=== PATIENT | female | born 1990 | race Caucasian/White ===

== ENCOUNTER 2017-04-24 22:30 | Emergency (ER) | payer OTHER ==
[~2017-04-24] VITALS: Ht 167.6 cm; Wt 104.3 kg
[2017-04-24 23:22] LABS: BILIRUBIN,URINE NEGATIVE (NEG); GLUCOSE,URINE NEGATIVE (NEG); NITRITE,URINE NEGATIVE (NEG); PROTEIN,URINE NEGATIVE (NEG-TRACE)
[2017-04-24 23:23] LABS: BASO # 0.1 x10^3/uL (0.0-0.2); BASO % 0 % (0-3); EOS % 1 % (0-3); LYMPH % 34 % (24-48); MEAN CORPUSCULAR HEMOGLOBIN 28 pg (25-35); MEAN CORPUSCULAR HGB CONC 33 g/dL (31-37); MEAN CORPUSCULAR VOLUME 85 fL (79-100); MONO % 6 % (0-9); NEUT % 58 % (31-73); PLATELET COUNT 246 x10^3/uL (140-400); RED BLOOD COUNT 4.37 x10^6/uL (3.50-5.40); RED CELL DISTRIBUTION WIDTH 13.9 % (11.5-14.5); WHITE BLOOD COUNT 11.6 x10^3/uL (4.0-11.0)
[2017-04-24 23:28] LABS: BACTERIA,URINE FEW /HPF (0-FEW); RBC,URINE 0 /HPF (0-2); SQUAMOUS EPITHELIAL CELL,UR MOD /LPF
[2017-04-24] MEDS ORDERED: IV RINGERS,LACTATED 1000ML 1,000 ML IV SCH (23:30)
[2017-04-24] MEDS ORDERED: IOHEXOL 300 MG/ML 75 ML VIAL IV ONE (23:30)
[2017-04-24] MEDS ORDERED: CONTRAST GIVEN MC PRN (23:30)
[2017-04-24 23:35] LABS: CREATININE 0.8 mg/dL (0.6-1.0); POTASSIUM 3.4 mmol/L (3.5-5.1)
[2017-04-24 23:41] LABS: ALBUMIN 3.4 g/dL (3.4-5.0); ALBUMIN/GLOBULIN RATIO 0.8 (1.0-1.7); TOTAL BILIRUBIN 0.3 mg/dL (0.2-1.0); TOTAL PROTEIN 7.5 g/dL (6.4-8.2)
[2017-04-24 23:53] LABS: NEG OBC SER NEG; POS OBC SER POS
--- NOTE | 2017-04-25 00:05 | RAD ---
CT Abdomen and Pelvis With Intravenous Contrast: History: Severe low abdominal pain for 2 days. Comparison: None. Technique: After administration of intravenous contrast administration, 75 mL Omnipaque-300, CT of the abdomen and pelvis was performed. Exposure: One or more of the following individualized dose reduction techniques were utilized for this examination: 1. Automated exposure control 2. Adjustment of the mA and/or kV according to patient size 3. Use of iterative reconstruction technique Findings: Evaluation of enteric structures may be limited by lack of oral contrast. Liver, spleen, pancreas, and bilateral adrenal glands unremarkable. Gallbladder is absent. Bilateral kidneys enhance symmetrically. No bowel obstruction or inflammation is seen. Appendix is without evidence of inflammation. Urinary bladder is unremarkable. Uterus and adnexa have unremarkable CT appearance. There is a small fat-containing hernia in the ventral abdominal wall just superior to the umbilicus. Impression: 1. No acute abnormality identified in the abdomen or pelvis. 2. Small fat-containing ventral hernia. Electronically signed by: Israel Chaudhari MD (04/25/2017 12:02 AM)
--- NOTE | 2017-04-25 00:19 | PHYS DOC ---
Past Medical History Past Medical History: Anemia, Diabetes-Type II Additional Past Medical Histor: ABNORMAL PAP Past Surgical History: Cholecystectomy, , Other Additional Past Surgical Histo: right hip surgery Alcohol Use: None Drug Use: None Adult General Chief Complaint Chief Complaint: ABDOMINAL PAIN HPI HPI 26-year-old female with no prior abdominal history now presents emergency department complaining of mid lower abdominal pain. Patient denies being aware that she is . She has no vaginal discharge or bleeding. Denies right lower quadrant pain. Normal bowel bladder habits. She has no history of chronic abdominal problems. Denies vomiting or diarrhea. Pain is not worse with movement Review of Systems Review of Systems Constitutional: Denies fever or chills [] Eyes: Denies change in visual acuity, redness, or eye pain [] HENT: Denies nasal congestion or sore throat [] Respiratory: Denies cough or shortness of breath [] Cardiovascular: No additional information not addressed in HPI [] GI: Denies abdominal pain, nausea, vomiting, bloody stools or diarrhea [] : Denies dysuria or hematuria [] Musculoskeletal: Denies back pain or joint pain [] Integument: Denies rash or skin lesions [] Neurologic: Denies headache, focal weakness or sensory changes [] Endocrine: Denies polyuria or polydipsia [] Current Medications Current Medications Current Medications Medications (Trade) Dose Ordered Sig/Donnie Start Time Stop Time Status Last Admin Dose Admin Info (Do NOT chart on this entry -- for MONITORING) 1 each PRN DAILY PRN 04/24/17 23:30 04/26/17 23:29 Iohexol (Omnipaque 300 Mg/ml) 75 ml 1X ONCE 04/24/17 23:30 04/24/17 23:31 DC 04/24/17 23:30 75 ML Ringer's Solution 1,000 ml @ 1,000 mls/hr Q1H 04/24/17 23:30 04/25/17 00:29 04/24/17 23:59 1,000 MLS/HR Allergies Allergies Allergies Coded Allergies Type Severity Reaction Last Updated Verified Penicillins Allergy Intermediate 09/30/16 Yes Physical Exam Physical Exam Well-appearing patient noted to stress mild mid abdominal tenderness no guarding or rebound, bowel sounds and no mass or megaly appreciated. No skin changes Constitutional: Well developed, well nourished, no acute distress, non-toxic appearance. [] HENT: Normocephalic, atraumatic, bilateral external ears normal, oropharynx moist, no oral exudates, nose normal. [] Eyes: PERRLA, EOMI, conjunctiva normal, no discharge. [] Neck: Normal range of motion, no tenderness, supple, no stridor. [] Cardiovascular:Heart rate regular rhythm, no murmur [] Lungs & Thorax: Bilateral breath sounds clear to auscultation [] Abdomen: Bowel sounds normal, soft, no tenderness, no masses, no pulsatile masses. [] Skin: Warm, dry, no erythema, no rash. [] Back: No tenderness, no CVA tenderness. [] Extremities: No tenderness, no cyanosis, no clubbing, ROM intact, no edema. [] Neurologic: Alert and oriented X 3, normal motor function, normal sensory function, no focal deficits noted. [] Psychologic: Affect normal, judgement normal, mood normal. [] Current Patient Data Vital Signs Vital Signs Date Time Temp Pulse Resp B/P (MAP) Pulse Ox O2 Delivery O2 Flow Rate FiO2 04/24/17 22:39 98.4 107 20 143/69 (93) 99 Room Air 98.4 Lab Values Laboratory Tests Test 04/24/17 21:52 04/24/17 22:46 04/24/17 22:47 POC Urine HCG, Qualitative Hcg negative (Negative) White Blood Count 11.6 x10^3/uL (4.0-11.0) H Red Blood Count 4.37 x10^6/uL (3.50-5.40) Hemoglobin 12.0 g/dL (12.0-15.5) Hematocrit 37.0 % (36.0-47.0) Mean Corpuscular Volume 85 fL (79-100) Mean Corpuscular Hemoglobin 28 pg (25-35) Mean Corpuscular Hemoglobin Concent 33 g/dL (31-37) Red Cell Distribution Width 13.9 % (11.5-14.5) Platelet Count 246 x10^3/uL (140-400) Neutrophils (%) (Auto) 58 % (31-73) Lymphocytes (%) (Auto) 34 % (24-48) Monocytes (%) (Auto) 6 % (0-9) Eosinophils (%) (Auto) 1 % (0-3) Basophils (%) (Auto) 0 % (0-3) Neutrophils # (Auto) 6.8 x10^3uL (1.8-7.7) Lymphocytes # (Auto) 4.0 x10^3/uL (1.0-4.8) Monocytes # (Auto) 0.7 x10^3/uL (0.0-1.1) Eosinophils # (Auto) 0.1 x10^3/uL (0.0-0.7) Basophils # (Auto) 0.1 x10^3/uL (0.0-0.2) Sodium Level 142 mmol/L (136-145) Potassium Level 3.4 mmol/L (3.5-5.1) L Chloride Level 105 mmol/L (98-107) Carbon Dioxide Level 29 mmol/L (21-32) Anion Gap 8 (6-14) Blood Urea Nitrogen 8 mg/dL (7-20) Creatinine 0.8 mg/dL (0.6-1.0) Estimated GFR (Cockcroft-Gault) 86.0 BUN/Creatinine Ratio 10 (6-20) Glucose Level 99 mg/dL (70-99) Calcium Level 9.0 mg/dL (8.5-10.1) Total Bilirubin 0.3 mg/dL (0.2-1.0) Aspartate Amino Transferase (AST) 20 U/L (15-37) Alanine Aminotransferase (ALT) 29 U/L (14-59) Alkaline Phosphatase 116 U/L (46-116) Total Protein 7.5 g/dL (6.4-8.2) Albumin 3.4 g/dL (3.4-5.0) Albumin/Globulin Ratio 0.8 (1.0-1.7) L Lipase 134 U/L (73-393) Serum Test, Qualitative Negative (NEG) Urine Collection Type Unknown Urine Color Yellow Urine Clarity Clear Urine pH 6.0 Urine Specific [place]offeen 1.020 Urine Protein Negative mg/dL (NEG-TRACE) Urine Glucose (UA) Negative mg/dL (NEG) Urine Ketones (Stick) Negative mg/dL (NEG) Urine Blood Negative (NEG) Urine Nitrite Negative (NEG) Urine Bilirubin Negative (NEG) Urine Urobilinogen Dipstick 1.0 mg/dL (0.2 mg/dL) Urine Leukocyte Esterase Moderate (NEG) Urine RBC 0 /HPF (0-2) Urine WBC 1-4 /HPF (0-4) Urine Squamous Epithelial Cells Mod /LPF Urine Bacteria Few /HPF (0-FEW) Urine Mucus Mod /LPF Laboratory Tests 04/24/17 22:46 Laboratory Tests 04/24/17 22:46 EKG EKG [] Radiology/Procedures Radiology/Procedures [] Course & Med Decision Making Course & Med Decision Making Pertinent Labs and Imaging studies reviewed. (See chart for details) Well-appearing patient unremarkable vital signs afebrile. Minimal mid abdominal tenderness no guarding or rebound. Labs unremarkable. Patient non. CT with small fat-containing hernia and abdominal midline otherwise unremarkable including no evidence of appendicitis. No further workup or treatment indicated. Patient agrees with outpatient follow-up with PCP. Strict return precautions given. [] Dragon Disclaimer Dragon Disclaimer This electronic medical record was generated, in whole or in part, using a voice recognition dictation system. Departure Departure Disposition: HOME, SELF-CARE Condition: STABLE Referrals: NO PCP (PCP) Patient Instructions: Abdominal Pain Additional Instructions: We have done a full workup of your abdominal pain today. Her labs are unremarkable. Urine shows no signs of infection. You are not . Your CAT scan shows that you have a small hernia in the midline of your abdomen where a small amount of fat is poking through some your connective tissues. This is typically a painful process however it is not threatening at all. It is likely that this is what causing her abdominal pain today. Follow-up with your doctor for reevaluation and referral to a surgeon to discuss surgical correction if this becomes necessary if her pain persists or worsens. Take 800 mg of ibuprofen every 6 hours and take Tylenol as needed for pain as well. Return immediately for any severe or worsening symptoms LUTHER LUNA MD Apr 25, 2017 00:19
[2017-04-25 00:24] VITALS: BP 115/68
== END 2017-04-25 00:45 | disposition home or self-care (01) ==
LOC: ER 22:30
DX: R10.30 Lower abdominal pain, unspecified (principal); E11.9 Type 2 diabetes mellitus without complications; Z88.0 Allergy status to penicillin; Z90.49 Acquired absence of other specified parts of digestive tract
CPT/HCPCS: 36415; 74177; 80053; 81001; 81025; 83690; 84703; 85027; 96360; 99285; Q9967; J7120

== ENCOUNTER 2019-06-15 16:12 | Emergency (ER) | payer MEDICAID, OTHER ==
[~2019-06-15] VITALS: Ht 170.2 cm; Wt 104.3 kg
[2019-06-15 16:17] VITALS: BP 134/68
[2019-06-15] MEDS ORDERED: CEPH-264 PO (16:34)
[2019-06-15] MEDS ORDERED: SULF1TAB24 PO (16:34)
--- NOTE | 2019-06-15 16:35 | PHYS DOC ---
Past Medical History Past Medical History: Anemia, Diabetes-Type II Additional Past Medical Histor: ABNORMAL PAP Past Surgical History: Cholecystectomy, , Other Additional Past Surgical Histo: right hip surgery Alcohol Use: None Drug Use: None Adult General Chief Complaint Chief Complaint: INSECT BITE [facility] HPI Patient is a 29 year old female presents to the ED complaining of insect bite to right abdomen times one day ago. States she was at the [employer] and woke up with what she thinks was a spider bite. States she did not feel it but states that she woke up with pain. Describes the pain as sharp. Rates the pain as 5/10. Denies fever, weakness, nausea/vomiting, headache, dizziness, chills or abscess. Review of Systems Review of Systems Constitutional: Denies fever or chills [] Eyes: Denies change in visual acuity, redness, or eye pain [] HENT: Denies nasal congestion or sore throat [] Respiratory: Denies cough or shortness of breath [] Cardiovascular: No additional information not addressed in HPI [] GI: Denies abdominal pain, nausea, vomiting, bloody stools or diarrhea [] : Denies dysuria or hematuria [] Musculoskeletal: Denies back pain or joint pain [] Integument: Denies rash or skin lesions [] Neurologic: Denies headache, focal weakness or sensory changes [] All other systems were reviewed and found to be within normal limits, except as documented in this note. Allergies Allergies Allergies Coded Allergies Type Severity Reaction Last Updated Verified Penicillins Allergy Intermediate 09/30/16 Yes Physical Exam Physical Exam Constitutional: Well developed, well nourished, no acute distress, non-toxic appearance. [] HENT: Normocephalic, atraumatic Skin: Warm, dry. insect bite like to right side of abdomen with 2 cm surrounding erythema and warmth. No abscess. Back: No tenderness, no CVA tenderness. [] Extremities: No tenderness, no cyanosis, no clubbing, ROM intact, no edema. [] Neurologic: Alert and oriented X 3, normal motor function, normal sensory function, no focal deficits noted. [] Psychologic: Affect normal, judgement normal, mood normal. [] Current Patient Data Vital Signs Vital Signs Date Time Temp Pulse Resp B/P (MAP) Pulse Ox O2 Delivery O2 Flow Rate FiO2 06/15/19 16:17 98.9 98 20 134/68 (90) 99 Room Air 98.9 EKG EKG [] Radiology/Procedures Radiology/Procedures [] Course & Med Decision Making Course & Med Decision Making Pertinent Labs and Imaging studies reviewed. (See chart for details) []No abscess or fluctuance on exam. We'll treat with antibiotics outpatient. Discussed symptomatic treatment and [id number] medications. Discussed follow-up for reevaluation in 3 days. Discussed reasons to return to the ED. Patient understands and agrees with plan. Dragon Disclaimer Dragon Disclaimer This electronic medical record was generated, in whole or in part, using a voice recognition dictation system. Departure Departure Impression: Primary Impression: Insect bite Additional Impression: Cellulitis Disposition: HOME, SELF-CARE Condition: IMPROVED Referrals: NO PCP (PCP) LUTHER DONAHUE MD Patient Instructions: Cellulitis, Insect Bite Scripts Doxycycline Hyclate (DOXYCYCLINE HYCLATE) 100 Mg Tablet 1 TAB PO BID for 10 Days, #20 TAB Prov: JULIANNA DELEON 06/15/19 Cephalexin (KEFLEX) 500 Mg Capsule 1 CAP PO TID for 10 Days, #30 CAP Prov: JULIANNA DELEON 06/15/19 Sulfamethoxazole/Trimethoprim (BACTRIM DS TABLET) 1 Each Tablet 1 TAB PO BID for 10 Days, #20 TAB Prov: JULIANNA DELEON 06/15/19 Problem Qualifiers JULIANNA DELEON Jun 15, 2019 16:35
[2019-06-15] MEDS ORDERED: DOXY100T PO (16:44)
== END 2019-06-15 16:48 | disposition home or self-care (01) ==
LOC: ER 16:12
DX: S30.861A Insect bite (nonvenomous) of abdominal wall, initial encounter (principal); L03.311 Cellulitis of abdominal wall; E11.9 Type 2 diabetes mellitus without complications; Z90.49 Acquired absence of other specified parts of digestive tract; Z98.890 Other specified postprocedural states; Z88.0 Allergy status to penicillin; W57.XXXA Bitten or stung by nonvenomous insect and other nonvenomous arthropods, initial encounter; Y93.89 Activity, other specified; Y92.89 Other specified places as the place of occurrence of the external cause; Y99.8 Other external cause status
CPT/HCPCS: 99283

== ENCOUNTER 2020-11-30 15:02 | Emergency (ER) | payer MEDICAID ==
[~2020-11-30] VITALS: Ht 170.2 cm; Wt 114.5 kg
[~2020-11-30 15:02] MED LIST: CEPH-264 PO; DOXY100T PO; SULF1TAB24 PO
--- NOTE | 2020-11-30 16:32 | RAD ---
RS Compliance Statement: One or more of the following individualized dose reduction techniques were utilized for this examinat ion: 1. Automated exposure control 2. Adjustment of the mA and/or kV according to patient size 3. Use of iterative reconstruction technique CT head without contrast 11/30/2020 4:05 PM INDICATION: Left-sided facial numbness COMPARISON: None available TECHNIQUE: Multiple axial CT images of the head were obtained from skull base through the vertex with out intravenous contrast. FINDINGS: Head: Ventricles, sulci and basal cisterns are within normal limits. There is no hydrocephalus. Luna-white matter differentiation is normal. There is no acute intracranial hemorrhage. There is no mass, mass e ffect or midline shift. Posterior fossa is normal in appearance. Visualized portions of the orbits are normal. Paranasal sinuses are well aerated. Mastoid air cells a re well aerated. Scalp and calvaria are normal. IMPRESSION: No acute intracranial hemorrhage. Electronically signed by: Bri Reece MD (11/30/2020 4:30 PM) [facility]
[2020-11-30] MEDS ORDERED: DEXT15DR5 LEFTEYE (17:13)
[2020-11-30] MEDS ORDERED: PRED-220 PO (17:13)
[2020-11-30] MEDS ORDERED: ACYC-12 PO (17:13)
--- NOTE | 2020-11-30 17:14 | PHYS DOC ---
Past Medical History Past Medical History: Anemia, Anxiety, Depression Additional Past Medical Histor: ABNORMAL PAP Past Surgical History: Cholecystectomy, Additional Past Surgical Histo: R hip surgery Smoking Status: Never Smoker Alcohol Use: Occasionally Drug Use: None General Adult EDM: Chief Complaint: FACE PROBLEM HPI: HPI: Patient is a 30 year old female who presents to the ED today complaining of left facial numbness and drool that began yesterday at 2 PM. Patient denies any headache, chest pain or shortness of breath. Review of Systems: Review of Systems: Constitutional: Denies fever or chills. [] Eyes: Denies change in visual acuity. [] HENT: Denies nasal congestion or sore throat. [] Respiratory: Denies cough or shortness of breath. [] Cardiovascular: Denies chest pain or edema. [] GI: Denies abdominal pain, nausea, vomiting, bloody stools or diarrhea. [] : Denies dysuria. [] Musculoskeletal: Denies back pain or joint pain. [] Integument: Denies rash. [] Neurologic: Reports left-sided facial numbness. Denies headache, focal weakness or sensory changes. [] Endocrine: Denies polyuria or polydipsia. [] Lymphatic: Denies swollen glands. [] Psychiatric: Denies depression or anxiety. [] Heart Score: Risk Factors: Risk Factors: DM, Current or recent (<one month) smoker, HTN, HLP, family history of CAD, obesity. Risk Scores: Score 0 - 3: 2.5% MACE over next 6 weeks - Discharge Home Score 4 - 6: 20.3% MACE over next 6 weeks - Admit for Clinical Observation Score 7 - 10: 72.7% MACE over next 6 weeks - Early Invasive Strategies Allergies: Allergies: Allergies Coded Allergies Type Severity Reaction Last Updated Verified Penicillins Allergy Intermediate 09/30/16 Yes Physical Exam: PE: Constitutional: Well developed, well nourished, no acute distress, non-toxic ap pearance. [] HENT: Normocephalic, atraumatic, bilateral external ears normal, oropharynx moist, no oral exudates, nose normal. [] Eyes: PERRLA, EOMI, conjunctiva normal, no discharge. [] Neck: Normal range of motion, no tenderness, supple, no stridor. [] Cardiovascular:Heart rate regular rhythm, no murmur [] Lungs & Thorax: Bilateral breath sounds clear to auscultation [] Abdomen: Bowel sounds normal, soft, no tenderness, no masses, no pulsatile masses. [] Skin: Warm, dry, no erythema, no rash. [] Back: No tenderness, no CVA tenderness. [] Extremities: No tenderness, no cyanosis, no clubbing, ROM intact, no edema. [] Neurologic: Alert and oriented X 3, normal motor function, normal sensory function, no focal deficits noted. Cranial nerves II-XII intact. Slight drool noted on the left facial region, slight difficulty closing the left eye and left facial numbness Psychologic: Affect normal, judgement normal, mood normal. [] Current Patient Data: Vital Signs: Vital Signs Date Time Temp Pulse Resp B/P (MAP) Pulse Ox O2 Delivery O2 Flow Rate FiO2 11/30/20 15:29 99.2 88 18 139/85 (103) 98 Room Air 99.2 EKG: EKG: [] Radiology/Procedures: Radiology/Procedures: []PROCEDURE: CT HEAD WO CONTRAST PQRS Compliance Statement: One or more of the following individualized dose reduction techniques were utilized for this examination: 1. Automated exposure control 2. Adjustment of the mA and/or kV according to patient size 3. Use of iterative reconstruction technique CT head without contrast 11/30/2020 4:05 PM INDICATION: Left-sided facial numbness COMPARISON: None available TECHNIQUE: Multiple axial CT images of the head were obtained from skull base through the vertex without intravenous contrast. FINDINGS: Head: Ventricles, sulci and basal cisterns are within normal limits. There is no hydrocephalus. Luna-white matter differentiation is normal. There is no acute intracranial hemorrhage. There is no mass, mass effect or midline shift. Posterior fossa is normal in appearance. Visualized portions of the orbits are normal. Paranasal sinuses are well aerated. Mastoid air cells are well aerated. Scalp and calvaria are normal. IMPRESSION: No acute intracranial hemorrhage. Electronically signed by: Carrie Burgos MD (11/30/2020 4:30 PM) [facility] DICTATED and SIGNED BY: CARRIE BURGOS MD DATE: 11/30/20 [id number] 0 Course & Med Decision Making: Course & Med Decision Making Pertinent Labs and Imaging studies reviewed. (See chart for details) This is a 30-year-old female patient presenting to the ED today with left facial droop and facial numbness, symptoms began yesterday at 2 PM. Physical exam and symptoms consistent with Galvez's palsy. Patient herself requested CT of the head which was negative. Discharging acyclovir, prednisone and Artificial tears eyedrops also recommended. Follow-up with PCP Wanda Disclaimer: Wanda Disclaimer: This electronic medical record was generated, in whole or in part, using a voice recognition dictation system. NIHSS Stroke Scale NIH Stroke Scale: NIH Stroke Scale Response (Comments) Value Level of Consciousness: 0 Alert/Responsive 0 LOC Questions: 0 Answers both correctly 0 LOC Commands: 0 Performs both tasks 0 Best Gaze: 1 Partial gaze palsy 1 Visual: 0 No visual loss 0 Facial Palsy: 1 Minor paralysis 1 Motor - Left Arm 0 No drift 0 Motor - Right Arm 0 No drift 0 Motor - Left Leg 0 No drift 0 Motor: Right Leg 0 No drift 0 Limb Ataxia: 0 Absent 0 Sensory: 0 No loss 0 Best Language: 0 Normal 0 Dysathria: 0 Normal 0 Extinction and Inattention: 0 Normal 0 Total 2 Departure Departure Impression: Primary Impression: Galvez's palsy Disposition: 01 DC HOME SELF CARE/HOMELESS Condition: STABLE Referrals: JACY YOUNG (PCP) Follow-up in 1 week Patient Instructions: Galvez's Palsy-Brief Additional Instructions: You were evaluated in the emergency room and noted to have symptoms consistent of Galvez's palsy this a viral illness. Take and use the prescribed medications as ordered. Follow-up with your doctor in 1 to 2 weeks Scripts Prednisone (PREDNISONE ) 10 Mg Tablet 1 TAB PO DAILY, #100 TAB 0 Refills dispense as follows 60mg daily for 5 days followed by 25mg BID for 10 days Please dispense adequate amount Prov: JOCELYN HODGES CISTERN ROOM OPERATOR 11/30/20 Acyclovir (ACYCLOVIR) 400 Mg Tablet 1 TAB PO 5XDAY, #50 TAB Prov: LILLYUNGAJOCELYN CISTERN ROOM OPERATOR 11/30/20 Dextran 70/Hypromellose (ARTIFICIAL TEARS EYE DROPS) 15 Ml Drops 1 DROP LEFTEYE QID, #30 ML 0 Refills Prov: MUTUNGAJOCELYN CISTERN ROOM OPERATOR 11/30/20 JOCELYN HODGES APRN Nov 30, 2020 17:14
[2020-11-30 17:21] VITALS: BP 128/81
== END 2020-11-30 17:28 | disposition home or self-care (01) ==
LOC: ER 15:02
DX: G51.0 Bell's palsy (principal); R20.2 Paresthesia of skin; D64.9 Anemia, unspecified; F41.9 Anxiety disorder, unspecified; F32.9 Major depressive disorder, single episode, unspecified; Z90.49 Acquired absence of other specified parts of digestive tract; Z98.890 Other specified postprocedural states; Z88.0 Allergy status to penicillin
CPT/HCPCS: 70450; 99284

== ENCOUNTER → 2021-09-14 | Outpatient (CLI) | payer OTHER, MEDICAID ==
[~2021-09-14] MED LIST changes: +ACYC-12 PO; +DEXAMETHASONE SOD PHOS 4 MG/ML VIAL ONE; +DEXT15DR5 LEFTEYE; +ETOMIDATE 20 MG/10 ML VIAL. IV ONE; +GLYCOPYRROLATE 1 MG/5 ML VIAL. ONE; +NEOSTIGMINE METHYLSULFATE 5 MG/5 ML SYRINGE. ONE; +ONDANSETRON PF 4 MG/2 ML VIAL. ONE; +PHENYLEPHRINE in 0.9% NACL PF 1 MG/10 ML SYRINGE. IV ONE; +PRED-220 PO; +ROCURONIUM 50 MG/5 ML VIAL. ONE; +SEVOFLURANE > 120 MINUTES. IH ONE; +SUCCINYLCHOLINE 200 MG/10 ML VIAL. ONE; +fentaNYL PF VIAL 250 MCG/5 ML VIAL ONE
--- NOTE | 2021-09-14 10:29 | RAD ---
EXAM: Right knee, 2 views. HISTORY: Pain. COMPARISON: None. FINDINGS: 2 views of the right knee are obtained. There is no fracture, dislocation or subluxation. T here is no joint effusion. There is a 2.1 cm region of cortical thickening along the proximal medial tibial metaphysis, likely due to a healed fibrous cortical defect. There are suspected tiny benign [place]. IMPRESSION: No acute osseous finding. Electronically signed by: Hannah Cassidy MD (09/14/2021 10:26 AM) [id number]
== END | disposition home or self-care (01) ==
LOC: RAD 09:46
PROVIDERS: ATTEND Family Medicine
DX: M25.561 Pain in right knee (principal); Z79.899 Other long term (current) drug therapy; Z88.0 Allergy status to penicillin; Z72.89 Other problems related to lifestyle
CPT/HCPCS: 73560; J0330; J1100; J2370; J2405; J2710; J3010; J3490

== ENCOUNTER 2021-11-18 09:11 | Emergency (ER) | payer MEDICAID, OTHER ==
[~2021-11-18] VITALS: Ht 170.2 cm; Wt 109.0 kg
[~2021-11-18 09:11] MED LIST changes: -DEXAMETHASONE SOD PHOS 4 MG/ML VIAL ONE; -ETOMIDATE 20 MG/10 ML VIAL. IV ONE; -GLYCOPYRROLATE 1 MG/5 ML VIAL. ONE; -NEOSTIGMINE METHYLSULFATE 5 MG/5 ML SYRINGE. ONE; -ONDANSETRON PF 4 MG/2 ML VIAL. ONE; -PHENYLEPHRINE in 0.9% NACL PF 1 MG/10 ML SYRINGE. IV ONE; -ROCURONIUM 50 MG/5 ML VIAL. ONE; -SEVOFLURANE > 120 MINUTES. IH ONE; -SUCCINYLCHOLINE 200 MG/10 ML VIAL. ONE; -fentaNYL PF VIAL 250 MCG/5 ML VIAL ONE
[2021-11-18 09:39] LABS: BILIRUBIN,URINE NEGATIVE (NEG); CLARITY,URINE CLEAR; COLOR,URINE YELLOW; NITRITE,URINE NEGATIVE (NEG); PROTEIN,URINE NEGATIVE (NEG-TRACE)
--- NOTE | 2021-11-18 09:53 | PHYS DOC ---
Past Medical History Past Medical History: Anemia, Anxiety, Depression Additional Past Medical Histor: GEST DIAB Past Surgical History: Cholecystectomy, Additional Past Surgical Histo: R hip surgery Smoking Status: Never Smoker Alcohol Use: None Drug Use: None General Adult EDM: Chief Complaint: ABDOMINAL PAIN IN HPI: HPI: Patient is a 31-year-old female who presents today with lower abdominal pain patient. Patient states that in September she had a positive test, she states her last normal menstrual period was September 11, 2021. Patient states that over the last couple of weeks she has had lower abdominal cramping and pain, she has denied vaginal discharge or vaginal bleeding at this time. Patient has stated that she does not have an [employer] at this time or has had any follow-up. Patient denies any UTI symptoms such as painful urination, but she does states she has had frequency in urination. She states she has had some nausea as well but no vomiting. She denies fever, cough, shortness of air, or chest pain as well. Review of Systems: Review of Systems: Constitutional: Denies fever or chills. [] Eyes: Denies change in visual acuity. [] HENT: Denies nasal congestion or sore throat. [] Respiratory: Denies cough or shortness of breath. [] Cardiovascular: Denies chest pain or edema. [] GI: Abdominal cramping, denies nausea, vomiting, bloody stools or diarrhea. [] /diesel engine erector: Denies dysuria, vaginal bleeding vaginal discharge [] Musculoskeletal: Denies back pain or joint pain. [] Integument: Denies rash. [] Neurologic: Denies headache, focal weakness or sensory changes. [] Endocrine: Denies polyuria or polydipsia. [] Lymphatic: Denies swollen glands. [] Psychiatric: Denies depression or anxiety. [] Heart Score: C/O Chest Pain: N/A Risk Factors: Risk Factors: DM, Current or recent (<one month) smoker, HTN, HLP, family history of CAD, obesity. Risk Scores: Score 0 - 3: 2.5% MACE over next 6 weeks - Discharge Home Score 4 - 6: 20.3% MACE over next 6 weeks - Admit for Clinical Observation Score 7 - 10: 72.7% MACE over next 6 weeks - Early Invasive Strategies Allergies: Allergies: Allergies Coded Allergies Type Severity Reaction Last Updated Verified Penicillins Allergy Intermediate 09/30/16 Yes Physical Exam: PE: Constitutional: Well developed, well nourished, no acute distress, non-toxic appearance. [] HENT: Normocephalic, atraumatic, bilateral external ears normal, oropharynx moist, no oral exudates, nose normal. [] Eyes: PERRLA, EOMI, conjunctiva normal, no discharge. [] Neck: Normal range of motion, no tenderness, supple, no stridor. [] Cardiovascular:Heart rate regular rhythm, no murmur [] Lungs & Thorax: Bilateral breath sounds clear to auscultation [] Abdomen: Bowel sounds normal, soft, no tenderness, no masses, no pulsatile masses. [] Skin: Warm, dry, no erythema, no rash. [] Back: No tenderness, no CVA tenderness. [] Extremities: No tenderness, no cyanosis, no clubbing, ROM intact, no edema. [] Neurologic: Alert and oriented X 3, normal motor function, normal sensory function, no focal deficits noted. [] Psychologic: Affect normal, judgement normal, mood normal. [] Current Patient Data: Labs: Laboratory Tests Test 11/18/21 09:15 11/18/21 09:20 11/18/21 09:53 Urine Collection Type Void Urine Color Yellow Urine Clarity Clear Urine pH 6.0 Urine Specific Kirby 1.025 Urine Protein Negative mg/dL Urine Glucose (UA) Negative mg/dL Urine Ketones (Stick) Negative mg/dL Urine Blood Negative Urine Nitrite Negative Urine Bilirubin Negative Urine Urobilinogen Dipstick 1.0 mg/dL Urine Leukocyte Esterase Moderate Urine RBC Occ /HPF Urine WBC 1-4 /HPF Urine Squamous Epithelial Cells Many /LPF Urine Bacteria Many /HPF Urine Mucus Marked /LPF Bedside Urine HCG, Qualitative Hcg positive White Blood Count 10.9 x10^3/uL Red Blood Count 4.51 x10^6/uL Hemoglobin 12.6 g/dL Hematocrit 37.6 % Mean Corpuscular Volume 84 fL Mean Corpuscular Hemoglobin 28 pg Mean Corpuscular Hemoglobin Concent 34 g/dL Red Cell Distribution Width 13.3 % Platelet Count 318 x10^3/uL Neutrophils (%) (Auto) 65 % Lymphocytes (%) (Auto) 27 % Monocytes (%) (Auto) 6 % Eosinophils (%) (Auto) 1 % Basophils (%) (Auto) 1 % Neutrophils # (Auto) 7.1 x10^3/uL Lymphocytes # (Auto) 2.9 x10^3/uL Monocytes # (Auto) 0.7 x10^3/uL Eosinophils # (Auto) 0.1 x10^3/uL Basophils # (Auto) 0.1 x10^3/uL Maternal Serum HCG Beta Subunit 13837 mIU/mL Sodium Level 131 mmol/L Potassium Level 4.1 mmol/L Chloride Level 102 mmol/L Carbon Dioxide Level 24 mmol/L Anion Gap 5 Blood Urea Nitrogen 6 mg/dL Creatinine 0.7 mg/dL Estimated GFR (Cockcroft-Gault) 97.0 BUN/Creatinine Ratio 9 Glucose Level 145 mg/dL Calcium Level 8.2 mg/dL Total Bilirubin 0.5 mg/dL Aspartate Amino Transf (AST/SGOT) 17 U/L Alanine Aminotransferase (ALT/SGPT) 31 U/L Alkaline Phosphatase 98 U/L Total Protein 7.6 g/dL Albumin 3.1 g/dL Albumin/Globulin Ratio 0.7 Current Medications Medications (Trade) Dose Ordered Sig/Donnie Route PRN Reason Start Time Stop Time Status Last Admin Dose Admin Sodium Chloride 1,000 ml @ 999 mls/hr 1X ONCE IV 11/18/21 10:30 11/18/21 11:30 11/18/21 10:41 Laboratory Tests Test 11/18/21 09:20 POC Urine HCG, Qualitative Hcg positive (Negative) Vital Signs: Vital Signs Date Time Temp Pulse Resp B/P (MAP) Pulse Ox O2 Delivery O2 Flow Rate FiO2 11/18/21 09:32 98.1 119 16 144/85 (104) 98 Room Air 98.1 EKG: EKG: [] Radiology/Procedures: Radiology/Procedures: REASON: preg, abd cramping PROCEDURE: OB <14 WKS W/TV Exam performed: OB sonogram first semester. HISTORY: , abdominal pain and cramping. DATE OF SERVICE: 11/18/2021. COMPARISON: None available TECHNIQUE: Transabdominal and transvaginal. FINDINGS: The uterus measures 9.5 x 6.1 x 5.2 cm. There is a single intrauterine gestational sac with a yolk sac. No pole is identified. The mean sac diameter measures 1.1 cm corresponding to 5 weeks and 6 days. A sonographic EDC is 07/15/2022. Right ovary measures 1.9 x 2.0 x 1.1 cm and the left ovary measures 2.6 x 1.9 x 2.1 cm. There is a 1.2 x 1.2 x 1.1 cm cyst in the left ovary. Incidental nabothian cysts and pelvic congestion. IMPRESSION: Single intrauterine gestational sac containing a gestational sac and yolk sac without identification of a pole. Given the gestational age of 5 weeks and 6 days the findings may be related to early intrauterine . Correlate with quantitative serial beta lateral and short-term interval follow-up OB ultrasound in approximately one to 2 weeks may be obtained to evaluate interval progression of . Electronically signed by: Janet Lomeli MD (11/18/2021 10:39 AM) [facility] [] Course & Med Decision Making: Course & Med Decision Making Pertinent Labs and Imaging studies reviewed. (See chart for details) 0940 Dr. Vagras at bedside, bedside ultrasound completed was able to visualize a gestational sac in the uterus. Patient is tachycardic in the 120s 130s we will start IV with IV fluids and draw some basic labs. We will also order a formal ultrasound. 1050 did review laboratory and radiological results with patient. Did inform her that we continue to see an intrauterine but no activity at this time, she will need to follow-up with her [employer] this week or next week for further management of this. Patient is informed to avoid alcohol smoking and caffeine at this time. To eat healthy meals and increase by mouth fluids. Patient is also instructed to take an [id number] vitamin. Patient informed to return to the emergency department for increased abdominal pain associated with vaginal bleeding or vaginal discharge. Patient verbalizes understanding is agreeable to the plan of care. Dragon Disclaimer: Dragon Disclaimer: This electronic medical record was generated, in whole or in part, using a voice recognition dictation system. Departure Departure Impression: Primary Impression: Qualified Codes: Z3A.09 - 9 weeks gestation of Additional Impression: UTI (urinary tract infection) during Qualified Codes: O23.41 - Unspecified infection of urinary tract in , first trimester Disposition: 01 HOME / SELF CARE / HOMELESS Condition: STABLE Referrals: MIMI JENNINGS (PCP) LUTHER BAZAN MD Patient Instructions: Abdominal Pain During , , - Urinary Tract Infection Additional Instructions: Macrobid 1 tablet twice daily for 7 full days Increase by mouth fluids eating healthy meals. Pjoz-aen-cukdvko vitamins. Follow-up with Dr. Bazan who is the P[employer] on-call or one of the clinics listed in the provided brochure for further management of your . Return to the emergency department for increased abdominal pain with vaginal bleeding or vaginal discharge associated with it. Scripts Nitrofurantoin Monohyd/M-Cryst (MACROBID 100 MG CAPSULE) 100 Mg Capsule 1 CAP PO BID for 7 Days, #14 CAP 0 Refills Prov: JACINTO BOYLE APRN 11/18/21 JACINTO BOYLE STRIPING MACHINE OPERATOR Nov 18, 2021 09:53
[2021-11-18 09:55] LABS: BACTERIA,URINE MANY /HPF (0-FEW); RBC,URINE OCC /HPF (0-2)
[2021-11-18 10:04] LABS: BASO # 0.1 x10^3/uL (0.0-0.2); BASO % 1 % (0-3); EOS # 0.1 x10^3/uL (0.0-0.7); EOS % 1 % (0-3); HEMATOCRIT 37.6 % (36.0-47.0); HEMOGLOBIN 12.6 g/dL (12.0-15.5); LYMPH # 2.9 x10^3/uL (1.0-4.8); LYMPH % 27 % (24-48); MEAN CORPUSCULAR HEMOGLOBIN 28 pg (25-35); MEAN CORPUSCULAR HGB CONC 34 g/dL (31-37); MEAN CORPUSCULAR VOLUME 84 fL (79-100); MONO # 0.7 x10^3/uL (0.0-1.1); MONO % 6 % (0-9); NEUT # 7.1 x10^3/uL (1.8-7.7); NEUT % 65 % (31-73); PLATELET COUNT 318 x10^3/uL (140-400); RED BLOOD COUNT 4.51 x10^6/uL (3.50-5.40); RED CELL DISTRIBUTION WIDTH 13.3 % (11.5-14.5); WHITE BLOOD COUNT 10.9 x10^3/uL (4.0-11.0)
[2021-11-18 10:11] LABS: CALCIUM 8.2 mg/dL (8.5-10.1); CREATININE 0.7 mg/dL (0.6-1.0); POTASSIUM 4.1 mmol/L (3.5-5.1)
[2021-11-18 10:17] LABS: ALBUMIN 3.1 g/dL (3.4-5.0); ALBUMIN/GLOBULIN RATIO 0.7 (1.0-1.7); TOTAL BILIRUBIN 0.5 mg/dL (0.2-1.0); TOTAL PROTEIN 7.6 g/dL (6.4-8.2)
[2021-11-18] MEDS ORDERED: IV NORMAL SALINE 1000ML BAG 1,000 ML IV ONE (10:30)
--- NOTE | 2021-11-18 10:41 | RAD ---
Exam performed: OB sonogram first semester. HISTORY: , abdominal pain and cramping. DATE OF SERVICE: 11/18/2021. COMPARISON: None available TECHNIQUE: Transabdominal and transvaginal. FINDINGS: The uterus measures 9.5 x 6.1 x 5.2 cm. There is a single intrauterine gestational sac with a yolk sa c. No pole is identified. The mean sac diameter measures 1.1 cm corresponding to 5 weeks and 6 days. A sonographic EDC is 07/15/2022. Right ovary measures 1.9 x 2.0 x 1.1 cm and the left ovary measures 2.6 x 1.9 x 2.1 cm. There is a 1. 2 x 1.2 x 1.1 cm cyst in the left ovary. Incidental nabothian cysts and pelvic congestion. IMPRESSION: Single intrauterine gestational sac containing a gestational sac and yolk sac without identification of a pole. Given the gestational age of 5 weeks and 6 days the findings may be related to early intrauterine . Correlate with quantitative serial beta lateral and short-term interval foll ow-up OB ultrasound in approximately one to 2 weeks may be obtained to evaluate interval progression of . Electronically signed by: Janet Lomeli MD (11/18/2021 10:39 AM) [facility]
[2021-11-18] MEDS ORDERED: NITR100C62 PO (10:57)
[2021-11-18 11:30] VITALS: BP 120/66
== END 2021-11-18 11:58 | disposition home or self-care (01) ==
LOC: ER 09:11
DX: O23.41 Unspecified infection of urinary tract in pregnancy, first trimester (principal); N39.0 Urinary tract infection, site not specified; Z3A.01 Less than 8 weeks gestation of pregnancy; Z90.49 Acquired absence of other specified parts of digestive tract; Z88.0 Allergy status to penicillin
CPT/HCPCS: 36415; 76801; 76817; 80053; 81001; 81025; 84702; 85025; 86850; 86900; 86901; 96360; 99285; J7030

== ENCOUNTER → 2021-11-23 | Outpatient (CLI) | payer MEDICAID ==
[2021-11-18 11:30] VITALS: BP 120/66
[~2021-11-23] MED LIST changes: +NITR100C62 PO
== END ==
LOC: LAB 10:31
PROVIDERS: ATTEND Obstetrics & Gynecology
DX: N92.6 Irregular menstruation, unspecified (principal)
CPT/HCPCS: 36415; 84702

== ENCOUNTER → 2021-11-27 | Outpatient (CLI) | payer MEDICAID ==
[2021-11-18 11:30] VITALS: BP 120/66
--- NOTE | 2021-11-27 13:56 | RAD ---
EXAMINATION: US OB <14 WKS, 11/27/2021 10:25 AM CLINICAL INDICATION: Unsure of dates. Follow-up scan from 11/18/2021 TECHNIQUE: Grayscale, color and spectral Doppler ultrasound images of the pelvis via first trimester OB protocol COMPARISON: OB ultrasound 11/18/2021 FINDINGS: The uterus measures 12 x 7 x 5 cm. There is an intrauterine gestational sac measuring 1.29 cm in diam eter, consistent with gestational age 6 weeks 1 day. This previously measured 1.10 cm and 5 weeks 6 d ays on 11/18/2021. Small nodular structure in the gestational sac is indeterminate, possibly the previ ously the seen yolk sac a pole, or debris. There is no heartbeat at this time. There is a new large subchorionic hemorrhage measuring 3.7 x 2.3 x 1.0 cm. The right ovary is not visualized. Left ovary measures 2.1 x 1.5 x 3.2 cm. There is normal left ovari an blood flow. There is a 2.0 x 1.1 x 0.8 cm anechoic cyst in the left ovary. IMPRESSION: 1. Findings suspicious for failure with inappropriate interval growth of the gestational sa c (measuring 6 weeks 1 day) and no definite embryo with a heartbeat at this time. 2. Large subchorionic hemorrhage. Electronically signed by: Jyothi Hawthorne MD (11/27/2021 1:54 PM) [id number]
== END ==
LOC: US 10:24
PROVIDERS: ATTEND Obstetrics & Gynecology
DX: O20.8 Other hemorrhage in early pregnancy (principal); N92.6 Irregular menstruation, unspecified; Z3A.01 Less than 8 weeks gestation of pregnancy
CPT/HCPCS: 76801